=== PATIENT | male | born 1985 | race Caucasian/White ===

== ENCOUNTER 2021-09-15 23:48 | Inpatient (IN) | payer OTHER ==
[~2021-09-15] VITALS: Ht 188 cm; Wt 102.5 kg
[2021-09-15] MEDS ORDERED: ACETAMINOPHEN 1000 MG/100 ML IV STA (23:57)
[2021-09-15] MEDS ORDERED: ONDANSETRON HCL INJ 2MG/ML 2ML 2 MG/ML VIAL IV STA (23:57)
[2021-09-16] MEDS ORDERED: SODIUM CHLORIDE 0.9% 1000ML 1,000 ML IV SCH
[2021-09-16] MEDS ORDERED: ACETAMINOPHEN 325 MG TAB PO ONE
[2021-09-16] MEDS ORDERED: SODIUM CHLORIDE 0.9% 1000ML 1,000 ML IV ONE
[2021-09-16] MEDS ORDERED: CEFTRIAXONE 1 GM in SODIUM CHLORIDE 0.9% 50ML 50 ML IV ONE ×2
[2021-09-16] MEDS ORDERED: SODIUM CHLORIDE 0.9% 50ML 50 ML ONE ×2 (00:14→01:18)
[2021-09-16] MEDS ORDERED: ACETAMINOPHEN 1000 MG/100 ML 100 ML IV ONE (00:14)
[2021-09-16] MEDS ORDERED: CEFTRIAXONE 1 GM VIAL ONE (00:14)
[2021-09-16] MEDS ORDERED: SODIUM CHLORIDE 0.9% 1000ML 1,000 ML ONE (00:14)
[2021-09-16] MEDS ORDERED: ONDANSETRON HCL INJ 2MG/ML 2ML 2 MG/ML VIAL ONE (00:15)
[2021-09-16 00:16] LABS: BASOPHILS # (AUTO) 0.1 (0.0-0.1); BASOPHILS % 0.5 % (0.0-1.0); EOSINOPHILS # (AUTO) 0.4 (0.0-0.4); HEMATOCRIT 46.4 % (38.2-49.6); HEMOGLOBIN 15.7 g/dL (14.0-18.0); LYMPHOCYTES # (AUTO) 2.7 (1.0-3.2); LYMPHOCYTES % 12.6 % (18.0-39.1); MEAN CORPUSCULAR HEMOGLOBIN 29.1 pg (28-32); MEAN CORPUSCULAR HGB CONC 33.8 g/dL (31-35); MEAN CORPUSCULAR VOLUME 86.1 fL (81-99); MONOCYTES # (AUTO) 1.6 (0.2-0.8); MONOCYTES % 7.6 % (4.4-11.3); NEUTROPHILS # (AUTO) 16.4 (2.1-6.9); NEUTROPHILS % 76.7 % (38.7-80.0); PLATELET COUNT 460 x10e3/uL (140-360); RED BLOOD COUNT 5.39 x10e6/uL (4.3-5.7); RED CELL DISTRIBUTION WIDTH 12.6 % (11.7-14.4)
[2021-09-16 00:27] LABS: ALBUMIN 3.7 g/dL (3.5-5.0); ALBUMIN/GLOBULIN RATIO 0.8 (0.8-2.0); ANION GAP 13.9 mmol/L (8-16); CALCIUM 9.1 mg/dL (8.4-10.2); CREATININE, SERUM 0.83 mg/dL (0.72-1.25); POTASSIUM 3.9 mmol/L (3.5-5.1)
[2021-09-16 01:04] LABS: CLARITY,URINE CLOUDY (CLEAR); COLOR,URINE YELLOW (YELLOW); KETONES,URINE NEGATIVE (NEGATIVE); LEUKOCYTE ESTERASE ,URINE NEGATIVE (NEGATIVE); NITRITE,URINE NEGATIVE (NEGATIVE); PROTEIN,URINE DIPSTICK >=300 (NEGATIVE); URINE UROBILINOGEN 0.2 mg/dL (0.2 - 1)
[2021-09-16 01:05] LABS: AMPHETAMINES SCREEN,URINE POSITIVE (NEGATIVE); BENZODIAZEPINES SCREEN,URINE POSITIVE (NEGATIVE); PHENCYCLIDINE SCREEN,URINE NEGATIVE (NEGATIVE)
[2021-09-16 01:12] LABS: BACTERIA,URINE MANY /HPF; EPITHELIAL CELLS,URINE FEW /LPF; RBC,URINE >50 /HPF (0-5); WBC,URINE (MAN) >50 /HPF (0-5)
[2021-09-16] MEDS ORDERED: IOPAMIDOL 370 MG/ML 200 ML INFUS..BTL INJ ONE (01:18)
[2021-09-16 01:20] LABS: CREATINE KINASE MB < 1.00 ng/mL (0-4.3)
[2021-09-16 01:27] LABS: CREATINE KINASE 69 IU/L (30-200)
[2021-09-16] MEDS: SODIUM CHLORIDE 0.9% 1000ML 1,000 ML IV SCH ×3 (01:27→18:08)
[2021-09-16] MEDS ORDERED: ONDANSETRON HCL INJ 2MG/ML 2ML 2 MG/ML VIAL IV STA (02:41)
[2021-09-16] MEDS ORDERED: ACETAMINOPHEN 325 MG TAB PO PRN (02:45)
[2021-09-16 03:00] VITALS: BP 122/62
[2021-09-16] MEDS: ALBUTEROL SULF 0.083% NEB SOLN 3 ML NEB NEB SCH ×7 (03:41→23:48)
[2021-09-16] MEDS ORDERED: BACLOFEN20 MG PO (04:07)
[2021-09-16] MEDS ORDERED: MYRBETRIQ50 MG PO (04:07)
[2021-09-16] MEDS ORDERED: CLOPIDOGREL75 MG PO (04:07)
[2021-09-16] MEDS ORDERED: FLUTICASONE PRO16 GM (04:07)
[2021-09-16] MEDS ORDERED: HYOSCYAMINE0.125 MG PO (04:07)
[2021-09-16] MEDS ORDERED: GABAPENTIN300 MG PO (04:07)
[2021-09-16] MEDS ORDERED: DIAZEPAM5 MG PO (04:07)
[2021-09-16] MEDS ORDERED: FAMOTIDINE20 MG PO (04:07)
[2021-09-16] MEDS ORDERED: BUSPIRONE HCL15 MG PO (04:07)
[2021-09-16] MEDS: IPRATROPIUM BROMIDE 0.02% 2.5 ML NEB NEB SCH ×4 (07:10→23:45)
[2021-09-16 07:34] LABS: CREATINE KINASE MB 0.5 ng/mL (0-5.0)
[2021-09-16 08:00] VITALS: BP 122/62
[2021-09-16 08:20] VITALS: BP 124/71
[2021-09-16] MEDS: CEFTRIAXONE 1 GM in SODIUM CHLORIDE 0.9% 50ML 50 ML IV SCH (09:00)
[2021-09-16 12:07] VITALS: BP 126/61
[2021-09-16 13:20] LABS: CREATINE KINASE MB 0.4 ng/mL (0-5.0)
[2021-09-16 16:04] VITALS: BP 122/60
[2021-09-16 20:00] VITALS: BP 126/66
[2021-09-16] MEDS ORDERED: ACETAMINOPHEN 650 MG SUPP PR PRN (22:00)
[2021-09-16] MEDS ORDERED: METOPROLOL TARTRATE INJ 1 MG/ML VIAL IV PRN (22:00)
[2021-09-16] MEDS ORDERED: ONDANSETRON HCL INJ 2MG/ML 2ML 2 MG/ML VIAL IV PRN (22:00)
[2021-09-17] VITALS (8 sets, daily range): BP systolic 115–138; BP diastolic 53–81
[2021-09-17] MEDS: SODIUM CHLORIDE 0.9% 1000ML 1,000 ML IV SCH ×4 (02:32→18:46)
[2021-09-17 06:39] LABS: BASOPHILS % 0.3 % (0.0-1.0); EOSINOPHILS # (AUTO) 0.5 (0.0-0.4); EOSINOPHILS % 4.1 % (0.0-6.0); LYMPHOCYTES # (AUTO) 2.1 (1.0-3.2); LYMPHOCYTES % 17.5 % (18.0-39.1); MEAN CORPUSCULAR HEMOGLOBIN 29.6 pg (28-32); MEAN CORPUSCULAR HGB CONC 33.3 g/dL (31-35); MEAN CORPUSCULAR VOLUME 88.7 fL (81-99); MONOCYTES # (AUTO) 0.9 (0.2-0.8); NEUTROPHILS # (AUTO) 8.1 (2.1-6.9); NEUTROPHILS % 69.4 % (38.7-80.0); PLATELET COUNT 318 x10e3/uL (140-360); RED BLOOD COUNT 4.06 x10e6/uL (4.3-5.7); RED CELL DISTRIBUTION WIDTH 12.4 % (11.7-14.4)
[2021-09-17] MEDS: ALBUTEROL SULF 0.083% NEB SOLN 3 ML NEB NEB SCH ×5 (06:40→23:35)
[2021-09-17] MEDS: IPRATROPIUM BROMIDE 0.02% 2.5 ML NEB NEB SCH ×4 (06:40→23:35)
[2021-09-17 07:11] LABS: ALBUMIN 2.8 g/dL (3.5-5.0); ALBUMIN/GLOBULIN RATIO 0.8 (0.8-2.0); ANION GAP 13.5 mmol/L (8-16); CALCIUM 7.5 mg/dL (8.4-10.2); CREATININE, SERUM 0.7 mg/dL (0.72-1.25); POTASSIUM 3.5 mmol/L (3.5-5.1)
[2021-09-17 07:33] LABS: CHOL/HDL RATIO 4.2 (3.9-4.7); MAGNESIUM 1.9 MG/DL (1.3-2.1); PHOSPHORUS 2.4 MG/DL (2.3-4.7)
[2021-09-17 07:53] LABS: THYROID STIMULATING HORMONE 0.355 uIU/mL (0.350-4.940)
[2021-09-17] MEDS: FAMOTIDINE 20 MG/2 ML VIAL IV SCH ×2 (09:00→16:35)
[2021-09-17] MEDS: CEFTRIAXONE 1 GM in SODIUM CHLORIDE 0.9% 50ML 50 ML IV SCH (09:00)
[2021-09-18] VITALS (8 sets, daily range): BP systolic 113–147; BP diastolic 63–80
[2021-09-18] MEDS: ALBUTEROL SULF 0.083% NEB SOLN 3 ML NEB NEB SCH ×6 (02:45→18:40)
[2021-09-18] MEDS: IPRATROPIUM BROMIDE 0.02% 2.5 ML NEB NEB SCH ×3 (06:15→18:40)
[2021-09-18 07:05] LABS: BASOPHILS # (AUTO) 0.1 (0.0-0.1); BASOPHILS % 0.9 % (0.0-1.0); EOSINOPHILS # (AUTO) 0.7 (0.0-0.4); EOSINOPHILS % 7.3 % (0.0-6.0); HEMATOCRIT 35.6 % (38.2-49.6); HEMOGLOBIN 11.9 g/dL (14.0-18.0); LYMPHOCYTES # (AUTO) 1.9 (1.0-3.2); LYMPHOCYTES % 20.6 % (18.0-39.1); MEAN CORPUSCULAR HGB CONC 33.4 g/dL (31-35); MEAN CORPUSCULAR VOLUME 86.8 fL (81-99); MONOCYTES # (AUTO) 0.8 (0.2-0.8); MONOCYTES % 8.5 % (4.4-11.3); NEUTROPHILS # (AUTO) 5.6 (2.1-6.9); NEUTROPHILS % 61.6 % (38.7-80.0); PLATELET COUNT 318 x10e3/uL (140-360); RED CELL DISTRIBUTION WIDTH 12.2 % (11.7-14.4)
[2021-09-18 07:27] LABS: ANION GAP 14.6 mmol/L (8-16); BLOOD UREA NITROGEN < 5 mg/dL (7-26); CALCIUM 8.4 mg/dL (8.4-10.2); CARBON DIOXIDE 21 mmol/L (22-29); CHLORIDE 107 mmol/L (98-107); EST GLOMERULAR FILTRATION RATE 129 ML/MIN (60-); GLUCOSE 86 mg/dL (74-118); POTASSIUM 3.6 mmol/L (3.5-5.1); SODIUM 139 mmol/L (136-145)
[2021-09-18 07:28] LABS: BUN/CREATININE RATIO 7 (6-25)
[2021-09-18] MEDS: CEFTRIAXONE 1 GM in SODIUM CHLORIDE 0.9% 50ML 50 ML IV SCH (09:00)
[2021-09-18] MEDS: FAMOTIDINE 20 MG/2 ML VIAL IV SCH ×2 (09:00→16:32)
[2021-09-18] MEDS ORDERED: BISACODYL 10 MG SUPP PR ONE (22:15)
[2021-09-18 22:36] LABS: % IRON SATURATION 18 % (15-50); IRON 53 ug/dL (65-175); TOTAL IRON BINDING CAPACITY 295 ug/dL (261-478); TRANSFERRIN 211 mg/dL (174-364)
[2021-09-18] MEDS: SODIUM CHLORIDE 0.9% 1000ML 1,000 ML IV SCH (23:09)
[2021-09-19] MEDS: ALBUTEROL SULF 0.083% NEB SOLN 3 ML NEB NEB SCH ×4 (00:25→10:50)
[2021-09-19] MEDS: IPRATROPIUM BROMIDE 0.02% 2.5 ML NEB NEB SCH ×4 (00:25→18:05)
[2021-09-19 00:29] VITALS: BP 124/93
[2021-09-19 04:17] VITALS: BP 109/68
[2021-09-19 05:29] LABS: BASOPHILS # (AUTO) 0.1 (0.0-0.1); BASOPHILS % 1.4 % (0.0-1.0); EOSINOPHILS # (AUTO) 0.9 (0.0-0.4); EOSINOPHILS % 9.9 % (0.0-6.0); HEMATOCRIT 36.4 % (38.2-49.6); HEMOGLOBIN 12.3 g/dL (14.0-18.0); LYMPHOCYTES # (AUTO) 2.2 (1.0-3.2); LYMPHOCYTES % 24.7 % (18.0-39.1); MEAN CORPUSCULAR HEMOGLOBIN 29.1 pg (28-32); MEAN CORPUSCULAR HGB CONC 33.8 g/dL (31-35); MEAN CORPUSCULAR VOLUME 86.1 fL (81-99); MONOCYTES # (AUTO) 0.8 (0.2-0.8); MONOCYTES % 9.5 % (4.4-11.3); NEUTROPHILS # (AUTO) 4.7 (2.1-6.9); PLATELET COUNT 340 x10e3/uL (140-360); RED BLOOD COUNT 4.23 x10e6/uL (4.3-5.7); RED CELL DISTRIBUTION WIDTH 12.1 % (11.7-14.4)
[2021-09-19 06:29] LABS: BLOOD UREA NITROGEN < 5 mg/dL (7-26); CALCIUM 8.8 mg/dL (8.4-10.2); CARBON DIOXIDE 24 mmol/L (22-29); CHLORIDE 109 mmol/L (98-107); CREATININE, SERUM 0.74 mg/dL (0.72-1.25); EST GLOMERULAR FILTRATION RATE 121 ML/MIN (60-); GLUCOSE 134 mg/dL (74-118); SODIUM 142 mmol/L (136-145)
[2021-09-19 06:32] LABS: BUN/CREATININE RATIO 7 (6-25)
[2021-09-19] MEDS ORDERED: POTASSIUM CHLORIDE 20 MEQ TAB CR PO ONE (08:00)
[2021-09-19 08:41] VITALS: BP 114/72
[2021-09-19 08:49] VITALS: BP 114/72
[2021-09-19] MEDS: FAMOTIDINE 20 MG/2 ML VIAL IV SCH (09:06)
[2021-09-19] MEDS: CEFTRIAXONE 1 GM in SODIUM CHLORIDE 0.9% 50ML 50 ML IV SCH (09:07)
[2021-09-19] MEDS ORDERED: ONDANSETRON HCL 4 MG ORAL DISINTEGRATING TAB PO PRN (11:15)
[2021-09-19] MEDS ORDERED: ACETAMINOPHEN-1 EAC4 PO (11:55)
[2021-09-19] MEDS ORDERED: ENULOSE10 GM/15 M PO (11:55)
[2021-09-19] MEDS ORDERED: AMMONIUM LACTA385 GM TOP (11:55)
[2021-09-19] MEDS ORDERED: CRANBERRY TABLET PO (11:55)
[2021-09-19] MEDS ORDERED: CLARITIN10 MG PO (11:55)
[2021-09-19] MEDS ORDERED: TYLENOL EXTRA500 MG PO (11:55)
[2021-09-19] MEDS ORDERED: DULCOLAX10 MG PR (11:55)
[2021-09-19] MEDS ORDERED: CLARITIN-D 241 EACH PO (11:55)
[2021-09-19 12:23] VITALS: BP 122/77
[2021-09-19] MEDS ORDERED: BACLOFEN 10 MG TAB PO SCH (14:00)
[2021-09-19] MEDS ORDERED: CEFUROXIME500 MG PO (15:18)
[2021-09-19] MEDS ORDERED: AZITHROMYCIN250 MG PO (15:18)
[2021-09-19 16:14] VITALS: BP 116/75
[2021-09-19] MEDS ORDERED: DIAZEPAM 5 MG TAB PO SCH (17:00)
[2021-09-19] MEDS ORDERED: GABAPENTIN 300 MG CAP PO SCH (17:00)
[2021-09-19] MEDS ORDERED: FAMOTIDINE 20 MG TAB PO SCH (17:00)
[2021-09-19] MEDS ORDERED: CLOPIDOGREL BISULFATE 75 MG TAB PO SCH (21:00)
[2021-09-20] MEDS ORDERED: AZITHROMYCIN 250 MG TAB PO SCH (06:00)
[2021-09-20] MEDS ORDERED: CEFUROXIME AXETIL 250 MG TAB PO SCH (09:00)
== END 2021-09-19 18:44 | DRG 871 ==
LOC: ER 23:55 → ERHOLD 09-16 02:44 → MED/SURG2 09-16 03:03
PROVIDERS: ADMIT Internal Medicine; ATTEND Internal Medicine
DX: A41.9 Sepsis, unspecified organism (principal); J18.9 Pneumonia, unspecified organism; N39.0 Urinary tract infection, site not specified; K56.0 Paralytic ileus; E87.2 Acidosis; G82.20 Paraplegia, unspecified; R65.20 Severe sepsis without septic shock; F15.10 Other stimulant abuse, uncomplicated; F12.90 Cannabis use, unspecified, uncomplicated; K74.60 Unspecified cirrhosis of liver; K59.09 Other constipation; Z20.822 Contact with and (suspected) exposure to COVID-19
CPT/HCPCS: 36415; 71045; 74018; 74177; 80048; 80053; 80061; 80307; 81001; 82550; 82553; 82607; 82746; 83036; 83540; 83605; 83735; 84100; 84443; 84466; 84484; 85025; 85045; 87040; 87086; 93005; 94799; 96361; 99251; 99284; J0456; J0696; J2405; J7030; J7050; Q9967; U0002

== ENCOUNTER 2021-11-22 00:57 | Emergency (ER) | payer OTHER ==
[~2021-11-22] VITALS: Ht 195.6 cm; Wt 113.4 kg
[~2021-11-22 00:57] MED LIST: ACETAMINOPHEN-1 EAC4 PO; AMMONIUM LACTA385 GM TOP; AZITHROMYCIN250 MG PO; BACLOFEN20 MG PO; BUSPIRONE HCL15 MG PO; CEFUROXIME500 MG PO; CLARITIN-D 241 EACH PO; CLARITIN10 MG PO; CLOPIDOGREL75 MG PO; CRANBERRY TABLET PO; DIAZEPAM5 MG PO; DULCOLAX10 MG PR; ENULOSE10 GM/15 M PO; FAMOTIDINE20 MG PO; FLUTICASONE PRO16 GM; GABAPENTIN300 MG PO; HYOSCYAMINE0.125 MG PO; MYRBETRIQ50 MG PO; TYLENOL EXTRA500 MG PO
== END 2021-11-22 02:50 | disposition home or self-care (01) ==
LOC: ER 00:59
DX: Z46.6 Encounter for fitting and adjustment of urinary device (principal); K21.9 Gastro-esophageal reflux disease without esophagitis; K76.9 Liver disease, unspecified; I73.9 Peripheral vascular disease, unspecified; F41.9 Anxiety disorder, unspecified; G82.20 Paraplegia, unspecified
CPT/HCPCS: 99283

== ENCOUNTER 2021-12-23 18:23 | Emergency (ER) | payer OTHER ==
[~2021-12-23] VITALS: Ht 195.6 cm; Wt 113.4 kg
[2021-12-23 18:56] LABS: CLARITY,URINE TURBID (CLEAR); COLOR,URINE STRAW (YELLOW); KETONES,URINE 2+ (NEGATIVE); LEUKOCYTE ESTERASE ,URINE MODERATE (NEGATIVE); NITRITE,URINE NEGATIVE (NEGATIVE); PROTEIN,URINE DIPSTICK >=300 (NEGATIVE); URINE UROBILINOGEN 1 mg/dL (0.2 - 1)
[2021-12-23 19:09] LABS: BACTERIA,URINE MANY /HPF; RBC,URINE 0-5 /HPF (0-5)
[2021-12-23] MEDS ORDERED: cefdinir PO (19:14)
[2021-12-23 20:41] VITALS: BP 129/88
== END 2021-12-23 21:28 ==
LOC: ER 18:29
DX: N39.0 Urinary tract infection, site not specified (principal); K76.9 Liver disease, unspecified; F41.9 Anxiety disorder, unspecified; I73.9 Peripheral vascular disease, unspecified; G82.20 Paraplegia, unspecified; K21.9 Gastro-esophageal reflux disease without esophagitis; G47.00 Insomnia, unspecified
CPT/HCPCS: 81001; 87086; 87186; 99283